=== PATIENT | male | born 1950 | race Two or more races ===

== ENCOUNTER 2021-02-20 13:45 | Inpatient (IN) | payer OTHER ==
[~2021-02-20] VITALS: Ht 162.6 cm; Wt 97.5 kg
[2021-02-21] MEDS ORDERED: METFORMIN HCL500 M3 PO (08:58)
[2021-02-21] MEDS ORDERED: COZAAR50 MG PO (08:58)
[2021-02-21] MEDS ORDERED: SYNTHROID175 MCG PO (08:59)
[2021-02-21] MEDS ORDERED: LOVAZA1 GM PO (08:59)
[2021-02-21] MEDS ORDERED: PROTONIX20 MG PO (09:00)
[2021-02-21] MEDS ORDERED: ALLERGY RELIEF180 MG PO (09:01)
[2021-02-21] MEDS ORDERED: VITAMIN C100 MG PO (09:02)
[2021-02-21] MEDS ORDERED: ADULT LOW DOSE81 M1 PO (09:02)
[2021-02-21] MEDS ORDERED: D3 + K2 DOTS 11 EACH PO (09:02)
[2021-02-21] MEDS ORDERED: PROBIOTIC1 EAC2 PO (09:02)
[2021-03-02] MEDS ORDERED: PERCOCET 5-3251 EACH PO (12:31)
[2021-03-02] MEDS ORDERED: OMEPRAZOLE20 MG PO (12:31)
== END 2021-03-02 14:37 | disposition home or self-care (01) | DRG 331 ==
LOC: EDSTATUS 13:45 → ADM 13:45 → SURH 02-27 06:30 → O/R 02-27 06:30 → SURH 02-27 13:13
PROVIDERS: ADMIT Surgery; ATTEND Surgery
PROC: 0DTP4ZZ Resection of Rectum, Percutaneous Endoscopic Approach (ICD-10-PCS; 2021-02-27)
PROC: 07BC4ZX Excision of Pelvis Lymphatic, Percutaneous Endoscopic Approach, Diagnostic (ICD-10-PCS; 2021-02-27)
PROC: 4A12X4Z Monitoring of Cardiac Electrical Activity, External Approach (ICD-10-PCS; 2021-02-27)
PROC: 0DBN4ZZ Excision of Sigmoid Colon, Percutaneous Endoscopic Approach (ICD-10-PCS; principal; 2021-02-27 21:15)
DX: D12.7 Benign neoplasm of rectosigmoid junction (principal); E66.01 Morbid (severe) obesity due to excess calories; Z68.36 Body mass index [BMI] 36.0-36.9, adult

== ENCOUNTER 2021-02-25 05:08 | Day surgery (SDC) | payer OTHER ==
[~2021-02-25 05:08] MED LIST: ADULT LOW DOSE81 M1 PO; ALLERGY RELIEF180 MG PO; COZAAR50 MG PO; D3 + K2 DOTS 11 EACH PO; LOVAZA1 GM PO; METFORMIN HCL500 M3 PO; PROBIOTIC1 EAC2 PO; PROTONIX20 MG PO; SYNTHROID175 MCG PO; VITAMIN C100 MG PO
== END 2021-02-25 13:15 | disposition home or self-care (01) ==
LOC: AMB-ENDOS 05:08
PROVIDERS: ATTEND Surgery
DX: D12.8 Benign neoplasm of rectum (principal); K64.8 Other hemorrhoids; Z20.822 Contact with and (suspected) exposure to COVID-19

== ENCOUNTER 2021-03-04 19:08 | Inpatient (IN) | payer OTHER ==
[~2021-03-04] VITALS: Ht 162.6 cm; Wt 96.2 kg
[~2021-03-04 19:08] MED LIST changes: +OMEPRAZOLE20 MG PO; +PERCOCET 5-3251 EACH PO
== END 2021-03-09 12:11 | disposition home or self-care (01) | DRG 390 ==
LOC: ER 19:08 → SURH 03-05 00:52
PROVIDERS: ADMIT Surgery; ATTEND Surgery
PROC: BW2110Z Computerized Tomography (CT Scan) of Abdomen and Pelvis using Low Osmolar Contrast, Unenhanced and Enhanced (ICD-10-PCS; principal; 2021-03-04)
PROC: 05HY33Z Insertion of Infusion Device into Upper Vein, Percutaneous Approach (ICD-10-PCS; 2021-03-05)
DX: K56.690 Other partial intestinal obstruction (principal); R14.0 Abdominal distension (gaseous); I10 Essential (primary) hypertension; E11.9 Type 2 diabetes mellitus without complications; Z20.822 Contact with and (suspected) exposure to COVID-19; G47.33 Obstructive sleep apnea (adult) (pediatric); Z99.89 Dependence on other enabling machines and devices; Z98.0 Intestinal bypass and anastomosis status; Z79.4 Long term (current) use of insulin

== ENCOUNTER 2021-03-30 12:40 | Emergency (ER) | payer OTHER ==
[~2021-03-30] VITALS: Ht 162.6 cm; Wt 88.9 kg
== END 2021-03-30 18:44 | disposition home or self-care (01) ==
LOC: ER 12:40
DX: R10.84 Generalized abdominal pain (principal); Z93.3 Colostomy status

== ENCOUNTER 2021-06-04 07:35 | Outpatient (CLI) | payer OTHER | END 2021-06-04 07:46 | disposition home or self-care (01) | LOC: RX STUDY 07:35 | PROVIDERS: ATTEND Surgery | DX: D37.5 Neoplasm of uncertain behavior of rectum (principal); D12.8 Benign neoplasm of rectum; R19.4 Change in bowel habit ==

== ENCOUNTER 2021-06-12 12:45 | Inpatient (IN) | payer OTHER ==
[~2021-06-12] VITALS: Ht 162.6 cm; Wt 89.4 kg
[2021-06-18] MEDS ORDERED: INTESTINEX680 M1 PO (08:40)
[2021-06-18] MEDS ORDERED: ULTRACET PO (08:40)
== END 2021-06-18 14:10 | disposition home or self-care (01) | DRG 330 ==
LOC: SURH 06-16 05:54 → O/R 06-16 05:54 → SURH 06-16 10:30
PROVIDERS: ADMIT Surgery; ATTEND Surgery
PROC: 4A033R1 Measurement of Arterial Saturation, Peripheral, Percutaneous Approach (ICD-10-PCS; 2021-06-16)
PROC: 4A12X4Z Monitoring of Cardiac Electrical Activity, External Approach (ICD-10-PCS; 2021-06-16)
PROC: 3E0F7SF Introduction of Other Gas into Respiratory Tract, Via Natural or Artificial Opening (ICD-10-PCS; 2021-06-16)
PROC: 0DSB4ZZ Reposition Ileum, Percutaneous Endoscopic Approach (ICD-10-PCS; principal; 2021-06-16 10:30)
DX: D12.8 Benign neoplasm of rectum (principal); E87.2 Acidosis; R09.02 Hypoxemia; G47.30 Sleep apnea, unspecified

== ENCOUNTER 2021-10-11 12:30 | Inpatient (IN) | payer OTHER ==
[~2021-10-11] VITALS: Ht 162.6 cm; Wt 87.5 kg
[~2021-10-11 12:30] MED LIST changes: +INTESTINEX680 M1 PO; +ULTRACET PO
[2021-10-11] MEDS ORDERED: PEPCID AC20 MG PO (13:15)
[2021-10-11] MEDS ORDERED: CARAFATE1 GM PO (13:16)
[2021-10-11] MEDS ORDERED: GAVISCON LIQUI355 ML PO (13:17)
[2021-10-13] MEDS ORDERED: JANUVIA100 MG (09:26)
[2021-10-13] MEDS ORDERED: FLONASE16 GM (09:26)
[2021-10-13] MEDS ORDERED: PANTOPRAZOLE SO40 MG (09:26)
[2021-10-13] MEDS ORDERED: FEXOFENADINE H180 MG (09:26)
[2021-10-13] MEDS ORDERED: PROTECT IRON T1 EACH (09:27)
[2021-10-13] MEDS ORDERED: TAMSULOSIN HCL0.4 MG (09:27)
[2021-10-13] MEDS ORDERED: OMEGA-3 ACID ETH1 GM (09:27)
[2021-10-13] MEDS ORDERED: INTESTINEX680 M1 (09:27)
[2021-10-13] MEDS ORDERED: LOSARTAN-HCTZ1 EACH (09:27)
[2021-10-17] MEDS ORDERED: BACTRIM DS TAB1 EACH PO (08:27)
== END 2021-10-17 11:51 | disposition home or self-care (01) | DRG 419 ==
LOC: ER 12:30 → SURG 16:34
PROVIDERS: ADMIT Colon & Rectal Surgery; ATTEND Colon & Rectal Surgery
PROC: BF532Z0 Other Imaging of Gallbladder and Bile Ducts using Fluorescing Agent, Intraoperative (ICD-10-PCS; 2021-10-16)
PROC: 0FT44ZZ Resection of Gallbladder, Percutaneous Endoscopic Approach (ICD-10-PCS; principal; 2021-10-16 09:15)
DX: K81.0 Acute cholecystitis (principal); K43.2 Incisional hernia without obstruction or gangrene; R10.11 Right upper quadrant pain; I10 Essential (primary) hypertension; E11.9 Type 2 diabetes mellitus without complications; Z79.4 Long term (current) use of insulin; Z20.822 Contact with and (suspected) exposure to COVID-19; E03.8 Other specified hypothyroidism; E66.01 Morbid (severe) obesity due to excess calories; G47.39 Other sleep apnea